=== PATIENT | male | born 1995 | race Caucasian/White ===

== ENCOUNTER 2021-04-28 13:18 | Emergency (ER) | payer OTHER, BC ==
[2021-04-28 13:50] VITALS: TEMP 98.4; BMI 25.0
[2021-04-28] MEDS ORDERED: KETOROLAC TROMETHAMINE 30 MG/1 ML VIAL IM ONE (14:18)
[2021-04-28] MEDS ORDERED: KETOROLAC TROMETHAMINE 30 MG/1 ML VIAL ONE (14:57)
[2021-04-28 15:41] VITALS: BP 123/67; PULSE 76
== END 2021-04-28 15:52 | disposition home or self-care (01) ==
LOC: JER 13:18 → JERFT 13:18
PROC: 3E0233Z Introduction of Anti-inflammatory into Muscle, Percutaneous Approach (ICD-10-PCS; principal; 2021-04-28)
DX: M25.571 Pain in right ankle and joints of right foot (principal)
CPT/HCPCS: 73590-TC-RT-FY; 73610-TC-RT-FY; 73630-TC-RT-FY; 99284-25